=== PATIENT | male | born 1965 | race Caucasian/White ===

== ENCOUNTER 2016-11-29 15:03 | Emergency (ER) | payer MEDICARE | END 2016-11-29 16:29 | disposition home or self-care (01) | LOC: ER 15:03 | DX: S80.812A Abrasion, left lower leg, initial encounter (principal); R60.0 Localized edema; E11.9 Type 2 diabetes mellitus without complications; I10 Essential (primary) hypertension; F17.210 Nicotine dependence, cigarettes, uncomplicated; Z79.82 Long term (current) use of aspirin; Z79.4 Long term (current) use of insulin; Z79.899 Other long term (current) drug therapy; Z23 Encounter for immunization; W26.8XXA Contact with other sharp object(s), not elsewhere classified, initial encounter; Y92.009 Unspecified place in unspecified non-institutional (private) residence as the place of occurrence of the external cause | CPT/HCPCS: 90471 ==